=== PATIENT | male | born 1940 | race Two or more races ===

== ENCOUNTER 2018-02-14 11:30 | Day surgery (SDC) | payer MEDICARE, BC, OTHER ==
[2018-02-14] MEDS: NS 1,000 ML IV (11:45)
[2018-02-14] MEDS ORDERED: PROPOFOL 200 MG/20 ML VIAL As Ordered (13:14)
[2018-02-14] MEDS ORDERED: LIDOCAINE 2% INJ 100 MG/5 ML SDV (FOR ANES.) As Ordered (13:14)
[2018-02-14] MEDS ORDERED: ONDANSETRON 4MG/2ML VIAL (J2405) As Ordered (13:42)
== END 2018-02-14 14:19 | disposition home or self-care (01) ==
LOC: M OPP 14:19
DX: Z12.11 Encounter for screening for malignant neoplasm of colon (principal); D12.4 Benign neoplasm of descending colon; K57.30 Diverticulosis of large intestine without perforation or abscess without bleeding; K64.8 Other hemorrhoids; R00.8 Other abnormalities of heart beat; I48.91 Unspecified atrial fibrillation; I10 Essential (primary) hypertension; E78.5 Hyperlipidemia, unspecified; K21.9 Gastro-esophageal reflux disease without esophagitis; R12 Heartburn; M19.90 Unspecified osteoarthritis, unspecified site; Z97.8 Presence of other specified devices; R06.02 Shortness of breath; N40.1 Benign prostatic hyperplasia with lower urinary tract symptoms; J45.909 Unspecified asthma, uncomplicated; Z87.891 Personal history of nicotine dependence; Z88.2 Allergy status to sulfonamides; Z91.018 Allergy to other foods; Z79.01 Long term (current) use of anticoagulants; Z79.899 Other long term (current) drug therapy; Z80.8 Family history of malignant neoplasm of other organs or systems
CPT/HCPCS: 45385

== ENCOUNTER → 2018-11-12 | Outpatient (CLI) | payer MEDICARE, BC, OTHER ==
[~2018-11-12] MED LIST: ALBU83IN INH; ALLE180T33 PO; AMLO5TAB6 PO; ATOR1TAB21 PO; BISO5TAB5 PO; GLUC1CAP10 PO; LOSA100T50 PO; METO1TAB7 PO; OMEP40CA2 PO; POTA1TAB14 PO; PROP150T PO; SING10TA32 PO; XARE20TA PO
--- NOTE | 2018-11-12 17:15 | REP ---
ABDOMINAL SERIES: Supine and erect views of the abdomen demonstrate no free air. A few mildly dilated small bowel loops in the left upper quadrant may represent mild ileus. There are scattered air and fecal material throughout the colon. Multiple phleboliths are seen in the pelvis. There are degenerative changes of the spine and hips. An accompanying view of the chest demonstrates no acute infiltrate. Heart is normal in size. IMPRESSION: A few mildly dilated small bowel loops in the left upper quadrant may represent a mild ileus. No free air and no compelling evidence for small bowel obstruction. Lungs are clear. Electronically Signed by Gerber Torres MD 11/13/2018 04:26 P
== END ==
LOC: M WUC 16:04
PROVIDERS: ATTEND Internal Medicine
DX: K59.8 Other specified functional intestinal disorders (principal)

== ENCOUNTER 2018-11-22 06:31 | Emergency (ER) | payer MEDICARE, BC, OTHER ==
[~2018-11-22] VITALS: Ht 188 cm; Wt 97.7 kg
[2018-11-22] MEDS ORDERED: DOXY150C PO (06:58)
[2018-11-22 07:38] LABS: BASO % 0.7 % (0.0-1.0); EOS # 0.2 10^3/uL (0.0-0.50); EOS % 4.2 % (0.0-3.0); HEMATOCRIT 37.8 % (42.0-52.0); HEMOGLOBIN 12.6 g/dl (13.5-17.5); LYMPH # 0.7 10^3/uL (1.5-4.5); LYMPH % 16.5 % (24.0-44.0); MEAN CORPUSCULAR HEMOGLOBIN 30.4 pg (27.0-33.0); MEAN CORPUSCULAR HGB CONC 33.3 g/dl (32.0-36.5); MEAN CORPUSCULAR VOLUME 91.1 fl (80.0-96.0); MONO # 0.5 10^3/uL (0.0-0.8); MONO % 10.5 % (0.0-5.0); NEUTROPHILS # 2.9 10^3/uL (1.8-7.7); NEUTROPHILS % 67.6 % (36.0-66.0); PLATELET COUNT, AUTOMATED 139 10^3/uL (150-450); RED BLOOD COUNT 4.15 10^6/uL (4.30-6.10); WHITE BLOOD COUNT 4.3 10^3/uL (4.0-10.0)
--- NOTE | 2018-11-22 07:54 | REP ---
The portable chest, two AP views views, patient sitting: Comparison is 02/20/2014. The lung martinez are clear. The cardiac size is normal. The priti, mediastinum, and skeletal structures are unremarkable. Impression: Negative portable chest. There is no interval change. Electronically Signed by Gerber Ga MD 11/22/2018 07:45 A
[2018-11-22 08:03] LABS: BLOOD UREA NITROGEN 16 MG/DL (7-18); CALCIUM LEVEL 8.6 MG/DL (8.8-10.2); CARBON DIOXIDE LEVEL 27 MEQ/L (21-32); CHLORIDE LEVEL 111 MEQ/L (98-107); CK-MB VALUE MASS 1.4 NG/ML (<3.6); CPK CREATINE PHOSPHOKINASE 103 U/L (39-308); CREATININE FOR GFR 1.21 MG/DL (0.70-1.30); GLOMERULAR FILTRATION RATE > 60.0 (>42); GLUCOSE, FASTING 106 MG/DL (70-100); MB/CK RELATIVE INDEX 1.36 (< OR =4); POTASSIUM SERUM 3.8 MEQ/L (3.5-5.1); SODIUM LEVEL 144 MEQ/L (136-145); TROPONIN I < 0.02 NG/ML (< 0.10)
[2018-11-22 09:46] VITALS: BP 154/82
--- NOTE | 2018-11-23 06:55 | ECGEPIP ---
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
== END 2018-11-22 10:05 | disposition home or self-care (01) ==
LOC: M ED 06:31
DX: R00.2 Palpitations (principal); I10 Essential (primary) hypertension; I48.91 Unspecified atrial fibrillation; R78.5 Finding of other psychotropic drug in blood; K21.9 Gastro-esophageal reflux disease without esophagitis; Z79.899 Other long term (current) drug therapy; Z88.1 Allergy status to other antibiotic agents; Z88.2 Allergy status to sulfonamides; Z91.018 Allergy to other foods

== ENCOUNTER 2022-11-01 10:44 | Emergency (ER) | payer MEDICARE, BC, OTHER ==
[~2022-11-01] VITALS: Ht 188 cm; Wt 102.9 kg
[~2022-11-01 10:44] MED LIST changes: +ALBU2.5V10 INH; -ALBU83IN INH; +AMLO1TAB24 PO; -AMLO5TAB6 PO; +BISO5TAB14 PO; -BISO5TAB5 PO; +DOXY150C3 PO; +LOSA100T46 PO; -LOSA100T50 PO; +MONT-5 PO; -OMEP40CA2 PO; +OMEP40CA4 PO; +POTA-298 PO; -POTA1TAB14 PO; -SING10TA32 PO
[2022-11-01] MEDS ORDERED: BISO5TAB14 PO (11:34)
[2022-11-01] MEDS ORDERED: VENTAER INH (11:38)
[2022-11-01] MEDS ORDERED: LOSA50TA28 PO (11:38)
[2022-11-01] MEDS ORDERED: EPIP0.3I2 IM (11:38)
[2022-11-01] MEDS ORDERED: ALLE1TAB23 PO (11:38)
[2022-11-01] MEDS ORDERED: METO1TAB7 PO (11:38)
[2022-11-01] MEDS ORDERED: MONT10TA97 PO (11:38)
[2022-11-01 12:33] LABS: BASO # 0.1 10^3/uL (0.0-0.2); BASO % 0.8 % (0.0-1.0); EOS # 0.3 10^3/uL (0.0-0.5); EOS % 5.6 % (0.0-3.0); HEMATOCRIT 40.7 % (42.0-52.0); HEMOGLOBIN 13.5 g/dl (13.5-17.5); LYMPH # 0.9 10^3/uL (1.5-5.0); LYMPH % 15.1 % (24.0-44.0); MEAN CORPUSCULAR HEMOGLOBIN 30.8 pg (27.0-33.0); MEAN CORPUSCULAR HGB CONC 33.2 g/dl (32.0-36.5); MEAN CORPUSCULAR VOLUME 92.7 fl (80.0-96.0); MONO # 0.6 10^3/uL (0.0-0.8); MONO % 10.6 % (2.0-8.0); NEUTROPHILS # 4.1 10^3/uL (1.5-8.5); NEUTROPHILS % 67.6 % (36.0-66.0); PLATELET COUNT, AUTOMATED 157 10^3/uL (150-450); RED BLOOD COUNT 4.39 10^6/uL (4.30-6.10)
[2022-11-01 13:02] LABS: ALBUMIN 3.6 G/DL (3.2-5.2); ALKALINE PHOSPHATASE 112 U/L (46-116); ALT/SGPT 18 U/L (7.0-40); AST/SGOT 23 U/L (<34); BILIRUBIN,DIRECT 0.2 MG/DL (<0.4); BILIRUBIN,TOTAL 0.6 MG/DL (0.3-1.2); BLOOD UREA NITROGEN 18 MG/DL (9-23); CALCIUM LEVEL 8.5 MG/DL (8.3-10.6); CARBON DIOXIDE LEVEL 24 MMOL/L (20-31); CHLORIDE LEVEL 111 MMOL/L (98-107); CREATININE FOR GFR 1.05 MG/DL (0.70-1.30); GLOMERULAR FILTRATION RATE > 60.0 (>35); GLUCOSE, FASTING 120 MG/DL (74-106); MAGNESIUM LEVEL 1.9 MG/DL (1.8-2.4); POTASSIUM SERUM 4.3 MMOL/L (3.5-5.1); SODIUM LEVEL 145 MMOL/L (136-145); TOTAL PROTEIN 6.5 G/DL (5.7-8.2)
[2022-11-01 13:03] LABS: FREE T4 1.03 NG/DL (0.89-1.76)
[2022-11-01 13:04] LABS: THYROID STIMULATING HORMONE 1.629 uIU/ML (0.55-4.78)
[2022-11-01] MEDS ORDERED: propofoL 200 MG/20 ML VIAL IV.PROC PRN (13:20)
[2022-11-01] MEDS ORDERED: NS 1,000 ML IV SCH (13:20)
[2022-11-01 16:00] VITALS: BP 149/81
[2022-11-01] MEDS ORDERED: PROP150T20 PO (16:27)
== END 2022-11-01 16:33 | disposition home or self-care (01) ==
LOC: M ED 10:44
DX: I48.91 Unspecified atrial fibrillation (principal); I10 Essential (primary) hypertension; E78.5 Hyperlipidemia, unspecified; Z79.01 Long term (current) use of anticoagulants; Z79.899 Other long term (current) drug therapy; Z88.2 Allergy status to sulfonamides; Z91.018 Allergy to other foods